=== PATIENT | male | born 1950 | race Caucasian/White ===

== ENCOUNTER 2018-11-09 05:30 | Inpatient (IN) | payer MEDICARE, BC ==
[2018-10-29 12:27] LABS: BASOPHILS % (AUTO) 0.8 % (0-1); EOSINOPHILS # (AUTO) 0.2 X10'3 (0-0.9); EOSINOPHILS % (AUTO) 2.8 % (0-6); LYMPHOCYTES # (AUTO) 0.9 X10'3 (1.1-4.8); LYMPHOCYTES % (AUTO) 14.8 % (21-51); MEAN CORPUSCULAR HEMOGLOBIN 30.8 PG (27.0-31.0); MEAN CORPUSCULAR HGB CONC 34.3 g/dL (33.0-36.5); MEAN CORPUSCULAR VOLUME 89.8 FL (78-98); MEAN PLATELET VOLUME 8.7 FL (7.4-10.4); MONOCYTES # (AUTO) 0.6 X10'3 (0-0.9); MONOCYTES % (AUTO) 9.7 % (2-12); NEUTROPHILS # (AUTO) 4.3 X10'3 (1.8-7.7); NEUTROPHILS % (AUTO) 71.9 % (42-75); PRE OP HEMATOCRIT 50.7 % (42.0-52.0); PRE OP HEMOGLOBIN 17.4 g/dL (14.0-17.9); PRE OP PLATELET COUNT 172 X10'3 (140-440); RED BLOOD COUNT 5.65 X10'6 (4.70-6.10); RED CELL DISTRIBUTION WIDTH 14.3 % (11.5-14.5)
[2018-10-29 12:38] LABS: CLARITY,URINE CLEAR (Clear); COLOR,URINE YELLOW (Yellow); GLUCOSE, URINE NEGATIVE (Neg); KETONES,URINE NEGATIVE (Neg); LEUKOCYTE ESTERASE ,URINE NEGATIVE (Neg); NITRITES, URINE NEGATIVE (Neg); OCCULT BLOOD,URINE NEGATIVE (Neg); PH,URINE 5.5 (4.8-8.0); PROTEIN,URINE NEGATIVE (Neg); UROBILINOGEN,URINE 0.2 E.U/dL (0.2-1.0)
[2018-10-29 12:41] LABS: PRE OP PROTIME 10.2 SECONDS (9.0-12.0)
[2018-10-29 12:41] LABS: UA COLLECTION TYPE VOIDED
[2018-10-29 12:47] LABS: ALBUMIN/GLOBULIN RATIO 1.1 (1.1-1.5); ALKALINE PHOSPHATASE 56 IU/L (46-116); BLOOD UREA NITROGEN 23 MG/DL (7-18); BUN/CREATININE RATIO 24.5 (5.4-32.0); CALCIUM 9.5 MG/DL (8.5-10.1); CHLORIDE 104 MMOL/L (99-107); CREATININE 0.94 MG/DL (0.60-1.10); PRE OP ALT 40 U/L (30-65); PRE OP ANION GAP 8 (8-16); PRE OP AST 20 U/L (10-37); PRE OP BILIRUB, TOTAL 0.5 MG/DL (0.0-1.0); PRE OP GLUCOSE 119 MG/DL (70-104); PRE OP SODIUM 139 MMOL/L (135-145); TOTAL CARBON DIOXIDE 27.2 MMOL/L (24-32); TOTAL PROTEIN 7.7 G/DL (6.4-8.2); eGFR 80 ML/MIN
[2018-11-09] VITALS (19 sets, daily range): BP systolic 106–152; BP diastolic 60–103
[~2018-11-09] VITALS: Ht 180.3 cm; Wt 85.8 kg
[~2018-11-09 05:30] MED LIST: ASCO500C15 PO; CHOL-4 PO; FLO0.4C PO; LIDOcaine 1% (10mg/ml) 2ml vial ONE; LOSA25TA96 PO; OMEG1CAP2 PO; TEST200V10 IM; VITA100D3 PO; VITA1CAP PO; acetaminophen 325mg tablet PO ONE; cefazolin/dext.iso 2gm/100 ML IV ONE; celeCOXIB 100mg capsule PO ONE; famotidine 20mg tablet PO ONE; gabapentin 300mg capsule PO ONE; oxyCODONE SR 10mg (sust. release) tab PO ONE; ringers solution, lacted 1,000 ML IV SCH; tranexamic acid inj. 1,500 MG in normal saline 100ml IV soln 100 ML IV ONE
[2018-11-09] MEDS ORDERED: ROPIVAcaine 0.5% (5mg/ml) 30ml vial ONE ×2 (06:43→09:48)
[2018-11-09] MEDS ORDERED: fentaNYL/PF 50MCG/1 ML 2ML syringe ONE (07:15)
[2018-11-09] MEDS ORDERED: MIDAZolam 1mg/ml 10ml vial ONE (07:15)
[2018-11-09] MEDS ORDERED: vancomycin 1,000mg inj ONE (07:28)
[2018-11-09] MEDS ORDERED: propofol inj 20 ML IV ONE (07:49)
[2018-11-09] MEDS ORDERED: ringers solution, lacted 1,000 ML IV SCH (09:09)
[2018-11-09] MEDS ORDERED: meperidine/PF 25mg/ml syringe IV PRN ×3 (09:10)
[2018-11-09] MEDS ORDERED: proCHLORperazine 10 MG/2 ml inj IV PRN (09:10)
[2018-11-09] MEDS ORDERED: morphine 4 MG/ML inj SYRINge IV PRN ×2 (09:10)
[2018-11-09] MEDS ORDERED: ondansetron/PF 4mg/2ml inj IV PRN ×2 (09:10→10:15)
[2018-11-09] MEDS ORDERED: ceFAZolin 1000mg inj ONE (09:22)
[2018-11-09] MEDS ORDERED: diphenhydrAMINE 25mg capsule PO PRN ×2 (10:15)
[2018-11-09] MEDS ORDERED: bisacodyl 10mg suppository rectal RC PRN (10:15)
[2018-11-09] MEDS ORDERED: HYDROmorphone 1 mg/ml syringe IV PRN (10:15)
[2018-11-09] MEDS ORDERED: magnesium hydroxide 30ml (MOM) UD suspension PO PRN (10:15)
[2018-11-09] MEDS ORDERED: oxyCODONE/APAP 10/325mg tablet PO PRN (10:15)
--- NOTE | 2018-11-09 10:20 | NUR ---
Received from OR via bed, accompanied by Anesthesiologist. Report received. Initial physical assessment done and recorded.
--- NOTE | 2018-11-09 11:20 | NUR ---
Discharge criteria met, report to receiving floor. Transferred to room in stable condition.
[2018-11-09] MEDS: gabapentin 300mg capsule PO SCH ×2 (11:51→20:23)
[2018-11-09] MEDS: potassium cl 20mEq in 1/2 NS 1,000 ML IV SCH ×2 (11:53→18:13)
[2018-11-09] MEDS: oxyCODONE/APAP 10/325mg tablet PO PRN (13:29)
[2018-11-09] MEDS: ceFAZolin 1GM/D5W- ADD-VANTAGE 50 ML IV SCH (15:56)
[2018-11-09] MEDS ORDERED: vancomycin/NS 1 GM ADD-VANTAGE 250 ML IV SCH (20:00)
[2018-11-09] MEDS ORDERED: tamsulosin 0.4mg capsule PO SCH (21:00)
[2018-11-09] MEDS ORDERED: sennosides 8.6mg tablet PO SCH (21:00)
[2018-11-10] MEDS: ceFAZolin 1GM/D5W- ADD-VANTAGE 50 ML IV SCH (00:11)
[2018-11-10] MEDS: acetaminophen 325mg tablet PO PRN ×2 (00:16→10:24)
[2018-11-10] MEDS: oxyCODONE/APAP 10/325mg tablet PO PRN ×3 (02:44→13:30)
[2018-11-10] MEDS: celeCOXIB 100mg capsule PO SCH ×2 (05:45→05:54)
[2018-11-10] MEDS: potassium cl 20mEq in 1/2 NS 1,000 ML IV SCH (05:54)
[2018-11-10 06:00] VITALS: BP 118/81
[2018-11-10 06:10] LABS: BASOPHILS % (AUTO) 0.4 % (0-1); EOSINOPHILS # (AUTO) 0.1 X10'3 (0-0.9); EOSINOPHILS % (AUTO) 0.6 % (0-6); HEMATOCRIT 40.5 % (42.0-52.0); HEMOGLOBIN 13.9 g/dl (14.0-17.9); LYMPHOCYTES # (AUTO) 1.1 X10'3 (1.1-4.8); LYMPHOCYTES % (AUTO) 8.4 % (21-51); MEAN CORPUSCULAR HEMOGLOBIN 30.8 PG (27.0-31.0); MEAN CORPUSCULAR HGB CONC 34.2 g/dL (33.0-36.5); MEAN CORPUSCULAR VOLUME 89.9 FL (78-98); MEAN PLATELET VOLUME 8.2 FL (7.4-10.4); MONOCYTES % (AUTO) 7.7 % (2-12); NEUTROPHILS # (AUTO) 10.5 X10'3 (1.8-7.7); NEUTROPHILS % (AUTO) 82.9 % (42-75); PLATELET COUNT 174 X10'3 (140-440); RED CELL DISTRIBUTION WIDTH 14.4 % (11.5-14.5); WHITE BLOOD COUNT 12.7 X10'3 (4.5-11.0)
--- NOTE | 2018-11-10 06:26 | NUR ---
Report given to Pati ABRAHAM.
--- NOTE | 2018-11-10 06:26 | NUR ---
Student documentation: I have reviewed and agree with all medication administrations, interventions, assessments performed and documented by Evelyn Pack
[2018-11-10 06:42] LABS: ANION GAP 6 (8-16); CHLORIDE 105 MMOL/L (99-107); POTASSIUM 4.2 MMOL/L (3.5-5.1); SODIUM 138 MMOL/L (135-145); TOTAL CARBON DIOXIDE 26.7 MMOL/L (24-32)
[2018-11-10] MEDS: gabapentin 300mg capsule PO SCH ×2 (07:56→13:29)
[2018-11-10] MEDS ORDERED: losartan 25mg tablet PO SCH (08:00)
[2018-11-10 10:00] VITALS: BP 150/86
[2018-11-10] MEDS ORDERED: warfarin 7.5mg tablet PO ONE (10:00)
[2018-11-10] MEDS ORDERED: ASPI-41 PO (11:50)
--- NOTE | 2018-11-10 12:50 | NUR ---
Joint replacement consult: Pt seen by [facility] for written/verbal high protein ed. RD reviewed high protein needs for wound healing, immune strength, high protein foods, and protein supplementation options. RD contact information provided in case of further questions. Pt agrees to double proteins w/ meals; dietary notified. Addendum: 11/10/18 at [address] Amended: Links added.
--- NOTE | 2018-11-10 13:30 | NUR ---
Wheeled patient out to care. IV 22 gauge taken out, canula intact.
[2018-11-10] MEDS ORDERED: celeCOXIB 100mg capsule PO SCH (20:00)
[2018-11-11] MEDS ORDERED: acetaminophen 325mg tablet PO PRN (10:15)
== END 2018-11-10 13:46 | disposition home health service (06) | DRG 470 ==
LOC: PAS IN 05:30 → EDSTATUS 07:30 → ORTHO 4S 11:30
PROVIDERS: ADMIT Specialist; ATTEND Nurse Practitioner
PROC: 0MNN0ZZ Release Right Knee Bursa and Ligament, Open Approach (ICD-10-PCS; 2018-11-09)
PROC: 3E0T3BZ Introduction of Anesthetic Agent into Peripheral Nerves and Plexi, Percutaneous Approach (ICD-10-PCS; 2018-11-09)
PROC: 0SRC0J9 Replacement of Right Knee Joint with Synthetic Substitute, Cemented, Open Approach (ICD-10-PCS; principal; 2018-11-09 07:18)
DX: M17.11 Unilateral primary osteoarthritis, right knee (principal); D62 Acute posthemorrhagic anemia; M21.061 Valgus deformity, not elsewhere classified, right knee; I10 Essential (primary) hypertension; N40.0 Benign prostatic hyperplasia without lower urinary tract symptoms; M81.0 Age-related osteoporosis without current pathological fracture
CPT/HCPCS: 36415; 73560; 80051; 80053; 81003; 82948; 85025; 85610; 85730; 87070; 97110; 97116; 97161; 97530; A6449; A6455; A7000; C1713; C1758; C1776; G0378; J0690; J1170; J2250; J2405; J2704; J2795; J3010; J3370; J3490; J7030; J7120

== ENCOUNTER 2018-11-11 23:35 | Emergency (ER) | payer MEDICARE, BC ==
[~2018-11-11] VITALS: Ht 180.3 cm; Wt 86.3 kg
[~2018-11-11 23:35] MED LIST changes: +ASPI-41 PO; -LIDOcaine 1% (10mg/ml) 2ml vial ONE; -acetaminophen 325mg tablet PO ONE; -cefazolin/dext.iso 2gm/100 ML IV ONE; -celeCOXIB 100mg capsule PO ONE; -famotidine 20mg tablet PO ONE; -gabapentin 300mg capsule PO ONE; -oxyCODONE SR 10mg (sust. release) tab PO ONE; -ringers solution, lacted 1,000 ML IV SCH; -tranexamic acid inj. 1,500 MG in normal saline 100ml IV soln 100 ML IV ONE
[2018-11-12 00:23] LABS: BASOPHILS % (AUTO) 0.4 % (0-1); EOSINOPHILS # (AUTO) 0.1 X10'3 (0-0.9); HEMATOCRIT 39.1 % (42.0-52.0); HEMOGLOBIN 13.3 g/dl (14.0-17.9); LYMPHOCYTES # (AUTO) 1.1 X10'3 (1.1-4.8); LYMPHOCYTES % (AUTO) 11.1 % (21-51); MEAN CORPUSCULAR HEMOGLOBIN 30.8 PG (27.0-31.0); MEAN CORPUSCULAR HGB CONC 34.1 g/dL (33.0-36.5); MEAN CORPUSCULAR VOLUME 90.2 FL (78-98); MEAN PLATELET VOLUME 8.5 FL (7.4-10.4); MONOCYTES # (AUTO) 1.2 X10'3 (0-0.9); NEUTROPHILS # (AUTO) 7.5 X10'3 (1.8-7.7); NEUTROPHILS % (AUTO) 75.5 % (42-75); PLATELET COUNT 160 X10'3 (140-440); RED BLOOD COUNT 4.34 X10'6 (4.70-6.10); RED CELL DISTRIBUTION WIDTH 14.5 % (11.5-14.5); WHITE BLOOD COUNT 9.9 X10'3 (4.5-11.0)
[2018-11-12 00:31] LABS: ALANINE AMINOTRANSFERASE 35 U/L (12-78); ALBUMIN 3.3 G/DL (3.4-5.0); ALBUMIN/GLOBULIN RATIO 0.8 (1.1-1.5); ALKALINE PHOSPHATASE 44 IU/L (46-116); ANION GAP 5 (8-16); ASPARTATE AMINO TRANSFERASE 28 U/L (10-37); BILIRUBIN,TOTAL 0.6 MG/DL (0.1-1.0); BLOOD UREA NITROGEN 20 MG/DL (7-18); BUN/CREATININE RATIO 23.5 (5.4-32.0); CALCIUM 9.5 MG/DL (8.5-10.1); CHLORIDE 102 MMOL/L (99-107); CREATININE 0.85 MG/DL (0.60-1.10); GLUCOSE 113 MG/DL (70-104); POTASSIUM 3.8 MMOL/L (3.5-5.1); SODIUM 136 MMOL/L (135-145); TOTAL CARBON DIOXIDE 28.9 MMOL/L (24-32); TOTAL PROTEIN 7.2 G/DL (6.4-8.2); eGFR 89 ML/MIN
[2018-11-12] MEDS ORDERED: CEPH500C5 PO (01:19)
[2018-11-12] MEDS ORDERED: cephalexin 250mg capsule PO ONE (01:20)
[2018-11-12 01:46] LABS: CLARITY,URINE CLEAR (Clear); COLOR,URINE YELLOW (Yellow); GLUCOSE, URINE NEGATIVE (Neg); KETONES,URINE NEGATIVE (Neg); LEUKOCYTE ESTERASE ,URINE NEGATIVE (Neg); NITRITES, URINE NEGATIVE (Neg); OCCULT BLOOD,URINE NEGATIVE (Neg); PROTEIN,URINE NEGATIVE (Neg); UROBILINOGEN,URINE 0.2 E.U/dL (0.2-1.0)
[2018-11-12 01:50] LABS: UA COLLECTION TYPE CLN CATCH MIDSTREAM
[2018-11-12 01:57] VITALS: BP 135/8
== END 2018-11-12 01:59 | disposition home or self-care (01) ==
LOC: ER 23:36
DX: L03.115 Cellulitis of right lower limb (principal); Z98.890 Other specified postprocedural states; Z79.82 Long term (current) use of aspirin; Z79.899 Other long term (current) drug therapy; Z96.651 Presence of right artificial knee joint
CPT/HCPCS: 36415; 80053; 81003; 83605; 84145; 85025; 87040; 99283

== ENCOUNTER 2024-10-30 15:13 | Emergency (ER) | payer OTHER, MEDICARE, BC ==
[~2024-10-30] VITALS: Ht 182.9 cm; Wt 91.1 kg
[~2024-10-30 15:13] MED LIST changes: +AMLO5TAB16 PO; -ASCO500C15 PO; +ASCO500C18 PO; +ASPI-1071 PO; -ASPI-41 PO; +ATOR20TA66 PO; +CLOP75TA34 PO; -FLO0.4C PO; -LOSA25TA96 PO; +TAMS-55 PO; -TEST200V10 IM; +TEST200V33 IM
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
[2024-10-30 17:14] VITALS: TEMP 98.5
[2024-10-30 18:10] VITALS: BP 174/124; PULSE 94; RESP 18; O2SAT 94
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
[2024-10-30 18:38] LABS: BILIRUBIN,URINE NEGATIVE (Neg); CLARITY,URINE CLEAR (Clear); COLOR,URINE YELLOW (Yellow); GLUCOSE, URINE NEGATIVE (Neg); KETONES,URINE NEGATIVE (Neg); LEUKOCYTE ESTERASE ,URINE NEGATIVE (Neg); NITRITES, URINE NEGATIVE (Neg); OCCULT BLOOD,URINE NEGATIVE (Neg); PROTEIN,URINE TRACE mg/dl (Neg); UROBILINOGEN,URINE 0.2 E.U/dL (0.2-1.0)
[2024-10-30 18:43] LABS: UA COLLECTION TYPE NON-SPECIFIED
[2024-10-30 18:44] LABS: WBC,URINE 0-4 /HPF (0-4)
[2024-10-30 18:45] LABS: BACTERIA,URINE 4+ /HPF (Neg); RBC,URINE NONE SEEN /HPF (0-2); SQUAMOUS EPITHELIAL CELL,UR FEW /LPF (FEW)
== END 2024-10-30 20:29 | disposition home or self-care (01) ==
LOC: ER 15:14
DX: R07.81 Pleurodynia (principal); R03.0 Elevated blood-pressure reading, without diagnosis of hypertension; Z79.82 Long term (current) use of aspirin; Z79.899 Other long term (current) drug therapy; V89.2XXA Person injured in unspecified motor-vehicle accident, traffic, initial encounter; Y93.89 Activity, other specified; Y92.89 Other specified places as the place of occurrence of the external cause; Y99.8 Other external cause status
CPT/HCPCS: 71100; 81001; 99284

== ENCOUNTER 2025-02-09 19:41 | Inpatient (IN) | payer MEDICARE, BC ==
[~2025-02-09] VITALS: Ht 180.3 cm; Wt 93.5 kg
--- NOTE | 2025-02-09 20:41 | ELECTROCARDIOGRAPH REPORT ---
[facility] Test Date: 2025-02-09 Test Time: 20:26:55 Pat Name: MAITE ANDERSEN Department: EMERGENCY ROOM Room: Gender: M Supervisor [employer]: : 1950 Requested By: LEN ZARATE Order Number: [id number] Reading MD: Measurements Intervals [place] Rate: 126 P: 58 WA: 156 QRS: 56 QRSD: 95 T: -45 QT: 293 QTc: 425 Interpretive Statements Sinus tachycardia Probable inferior infarct, age indeterminate Borderline ST elevation, anterior leads Lateral leads are also involved Please click the below link to view image of tracing.
[2025-02-09 20:43] LABS: MEAN PLATELET VOLUME 8.7 FL (7.4-10.4); RED CELL DISTRIBUTION WIDTH 15.0 % (11.5-14.5)
[2025-02-09 20:54] LABS: CREATININE 1.20 MG/DL (0.60-1.10); TOTAL CARBON DIOXIDE 25.0 MMOL/L (24-32); eCRCL 57 ML/MIN; eGFR 59 ML/MIN
[2025-02-09 21:02] LABS: LEUKOCYTE ESTERASE ,URINE LARGE (Neg); NITRITES, URINE POSITIVE (Neg); OCCULT BLOOD,URINE SMALL (Neg)
--- NOTE | 2025-02-09 21:03 | RADIOLOGY REPORT ---
EXAM: DI CHEST,SINGLE VIEW CLINICAL HISTORY: SEPSIS SYMPTOMS TECHNIQUE: Single AP view of the chest WID: COMPARISON: DI CHEST,SINGLE VIEW on DOS: 11/20/23 FINDINGS: Lines and tubes: None Chest: The heart size and pulmonary vasculature is within normal limits. No pleural effusion, pneumothorax, or consolidation. The osseous structures are grossly intact. Multilevel thoracic spondylosis. IMPRESSION: 1. No acute cardiopulmonary abnormality.
[2025-02-09 21:08] LABS: UA COLLECTION TYPE VOIDED
[2025-02-09 21:09] LABS: SQUAMOUS EPITHELIAL CELL,UR FEW /LPF (FEW)
[2025-02-09 21:10] LABS: MUCUS STRANDS FEW /LPF (Neg); WBC CLUMPS,URINE MODERATE /HPF (NEGATIVE)
[2025-02-09 21:11] LABS: RENAL CELLS, URINE FEW /HPF
[2025-02-09 21:12] LABS: BANDS% (MANUAL) 10 % (0-10); NEUTROPHILS % (MANUAL) 86 % (42-75)
[2025-02-09 21:13] LABS: EOSINOPHILS % (MANUAL) 1 % (0-6); LYMPHOCYTES % (MANUAL) 2 % (21-51); MONOCYTES % (MANUAL) 1 % (2-12); PLATELET ESTIMATE NORMAL
--- NOTE | 2025-02-09 21:58 | Physician Documentation ---
History of Present Illness ~ Chief Complaint: Urinary Symptoms Stated Complaint: POSS SEPSIS Time Seen by MD: 21:57 HPI Patient presents to the emergency room for evaluation of fevers and rigors. Patient was recently diagnosed with urinary tract infection which started a proximally a few days ago. History of sepsis from urinary tract infection. Was prescribed some Bactrim and began taking it today however symptoms worsen therefore came in to be evaluated. Patient has history of urinary tract infections ever since he had TURP procedure Medication Reconciliation Allergies: Coded Allergies: No Known Allergies (Unverified , 02/09/25) Scheduled Amlodipine Besylate (Amlodipine Besylate), 2 TAB PO DAILY Ascorbic Acid (Vitamin C), 2 CAP PO DAILY, (Reported) Aspirin (Ecotrin*), 1 TAB PO DAILY Atorvastatin Calcium (Atorvastatin Calcium), 40 MG PO DAILY Cholecalciferol (Vitamin D3) (Vitamin D3), 1 CAP PO DAILY, (Reported) Clopidogrel Bisulfate (Clopidogrel), 75 MG PO DAILY Losartan Potassium (Losartan Potassium), 1 TAB PO DAILY, (Reported) [place]-3 Fatty Acids/Fish Oil (Fish Oil 1,000 mg Capsule), 2 CAP PO DAILY, (Reported) Tamsulosin Hcl* (Flomax*), 1 CAP PO HS, (Reported) Testosterone Cypionate (TESTOSTERONE CYPIONATE 200mg/ml 10ml vial), 0.25 ML IM 2XWEEK, (Reported) Vitamin B Complex (Vitamin B Complex), 1 TAB PO DAILY, (Reported) Vitamin E Acetate (Vitamin E), 180 MG PO 3 TIMES WEEKLY, (Reported) Past Medical History Past Medical History: *RENAL/*, UTI, *INFECTIOUS DZ* Past Surgical History: abdominal surgery, orthopedic surgeries Alcohol Use: None Drug Use: none Lives with: Spouse Lives In: Home Review of Systems ROS All review of systems negative except as per HPI Physical Exam Vital Signs: Temperature: 101.7, Source: Oral, Heart Rate: 129, Respiratory Rate: 19, BP: 161/91, Pulse Oximetry: 94, Weight: 93.500 Oxygen Flow Rate: 0 Physical Exam General: Patient is awake, alert, oriented x4 in no acute distress Head: Normocephalic and atraumatic. Eyes: Conjunctival normal. EOMI. PERRL. ENT: Mucous membranes moist. Neck: Supple, trachea is midline. Chest: Clear to auscultation bilaterally without rales, rhonchi, or wheezes. There is no accessory muscle use or retractions. Cardiac: Tachycardic and regular without murmurs, gallops, or rubs. Abd: Soft, nondistended, nontender, with normoactive bowel sounds. No guarding, rebound, or rigidity. Sepsis Screening Reassessment Time: 00:12 Cardiology Exam: normal peripheral pulses Peripheral Pulses: 2+ radial (R), 2+ radial (L), 2+ dorsalis pedis (R), 2+ dorsalis pedis (L) Extremities: normal inspection Skin Color: Normal Progress Results/Orders Results/Orders Orders - BRADY LUCAS MD Culture Blood (02/09/25 20:23) Chest,Single View (02/09/25 20:23) Monitor (02/09/25 20:23) Saline Lock (02/09/25 20:23) Cult Urine + [address] Ct (02/09/25 21:09) Normal Saline 1000ml (0.9% Sodium Chlori (02/09/25 22:05) Page Hospitalist (02/09/25 22:05) Fill Out Med Reconciliation (02/09/25 22:05) Completed Orders - BRADY LUCAS MD Cbc/Diff (02/09/25 20:23) Chest,Single View (02/09/25 20:23) Procalcitonin (02/09/25 20:23) BMP (02/09/25 20:23) Lacticsepsis (02/09/25 20:23) Electrocardiogram (02/09/25 ) Acetaminophen 325mg Tablet (Tylenol Tabl (02/09/25 20:30) Ua W/Microscopic, Cult If Ind (02/09/25 20:50) Man Diff (02/09/25 20:31) Ceftriaxone/W2n-Aufscvbk 1gm (Rocephin 1 (02/09/25 22:05) C-Reactive Protein (02/09/25 20:31) Liver Panel (02/09/25 20:31) Medications Received in ER Medications (Trade) Dose Ordered Sig/Fabián Route PRN Reason Start Time Stop Time Status Last Admin Dose Admin (Tylenol tablet) 650 mg ONCE ONCE PO 02/09/25 20:30 02/09/25 20:31 DC 02/09/25 20:58 650 MG Ceftriaxone Sodium 50 ml @ 100 mls/hr ONCE ONCE IV 02/09/25 22:05 02/09/25 22:35 DC 02/09/25 22:42 100 MLS/HR (0.9% sodium chloride (NS) 1000ml IV soln) 2,000 ml ONCE ONCE IVB 02/09/25 22:05 02/09/25 22:07 DC 02/09/25 22:42 2,000 ML Vital Signs 02/09/25 02/09/25 02/09/25 20:13 21:57 23:50 Temp 101.7 98.7 97.0 Pulse 129 108 99 Resp 19 16 16 B/P (MAP) 161/91 148/94 (112) 156/89 (111) Pulse Ox 94 94 94 O2 Flow Rate 0 0 0 Laboratory Tests Test 02/09/25 20:31 02/09/25 20:50 White Blood Count 13.6 H Red Blood Count 5.38 Hemoglobin 16.2 Hematocrit 47.9 Mean Corpuscular Volume 89.1 Mean Corpuscular Hemoglobin 30.0 Mean Corpuscular Hemoglobin Concent 33.7 Red Cell Distribution Width 15.0 H Platelet Count 154 Mean Platelet Volume 8.7 Neutrophils (%) (Auto) 95.3 H Lymphocytes (%) (Auto) 2.0 L Monocytes (%) (Auto) 2.5 Eosinophils (%) (Auto) 0.1 Basophils (%) (Auto) 0.1 Neutrophils # (Auto) 12.9 H Lymphocytes # (Auto) 0.3 L Monocytes # (Auto) 0.3 Eosinophils # (Auto) 0.0 Basophils # (Auto) 0.0 CBC Comment Differential Total Cells Counted 100 Neutrophils % (Manual) 86 H Band Neutrophils % 10 Lymphocytes % (Manual) 2 L Monocytes % (Manual) 1 L Eosinophils % (Manual) 1 Toxic Vacuolation 1+ Platelet Estimate Normal Red Blood Cell Morphology Normal Basophilic Stippling Sodium Level 133 L Potassium Level 4.4 Chloride Level 97 L Carbon Dioxide Level 25.0 Anion Gap 11 Blood Urea Nitrogen 29 H Creatinine 1.20 H Estimated GFR/1.73 m2 59 BUN/Creatinine Ratio 24.2 H Glucose Level 103 Lactic Acid Level 1.0 Calcium Level 9.7 Total Bilirubin 1.5 H Direct Bilirubin 0.3 Aspartate Amino Transf (AST/SGOT) 29 Alanine Aminotransferase (ALT/SGPT) 43 Alkaline Phosphatase 52 C-Reactive Protein 9.21 H Total Protein 7.6 Albumin 3.9 Globulin 3.7 Albumin/Globulin Ratio 1.1 Procalcitonin 2.53 H Chemistry Comments Urine Specimen Description Voided Urine Color Yellow Urine Clarity Slightly cloudy Urine pH 6.0 Urine Specific [place] 1.015 Urine Protein Negative Urine Glucose (UA) Negative Urine Ketones Negative Urine Occult Blood Small Urine Nitrite Positive H Urine Bilirubin Negative Urine Urobilinogen 0.2 Urine Leukocyte Esterase Large H Urine RBC 3-10 Urine WBC 20-30 H Urine WBC Clumps Moderate Urine Squamous Epithelial Cells Few Urine Renal Cells Few Urine Bacteria 3+ Urine Mucus Few Urine Culture Indicated Indicated Volume Urine Centrifuged 10 ml Urine Comment Microbiology Date/Time Source Procedure Growth Status 02/09/25 21:09 Urine Voided Urine Culture - Preliminary Culture received. Resulted 02/09/25 20:35 Blood Hand Left Blood Culture - Preliminary NEGATIVE (LESS THAN 24 HOURS) Resulted EKG/XRAY/CT/US/VASC/MRI EKG : Additional Comment EKG interpreted by myself shows time of 2025, rate 126, sinus tachycardia, normal axis, nonspecific ST-T changes and T-wave inversions Chest X-Ray : Additional Comments Exam: CHEST,SINGLE VIEW EXAM: DI CHEST,SINGLE VIEW CLINICAL HISTORY: SEPSIS SYMPTOMS TECHNIQUE: Single AP view of the chest WID: COMPARISON: DI CHEST,SINGLE VIEW on DOS: 11/20/23 FINDINGS: Lines and tubes: None Chest: The heart size and pulmonary vasculature is within normal limits. No pleural effusion, pneumothorax, or consolidation. The osseous structures are grossly intact. Multilevel thoracic spondylosis. IMPRESSION: 1. No acute cardiopulmonary abnormality. Medical Decision Making Findings Patient presented to the emergency room with fever and dysuria as per HPI. Differentials include but are not limited to sepsis, urinary tract infection, metabolic encephalopathy, electrolyte disturbances therefore emergent labs and imaging indicated. Labs show patient is indeed suffering from urosepsis. IV antibiotics initiated and 30 milliliters/kilogram of IV fluids started. Blood pressure is reassuring and he had not feel he requires ICU. Departure Admitted to Inpatient Unit: yes, to hospitalist Impression: Primary Impression: Acute urinary tract infection Additional Impression: Sepsis Condition: Guarded Referrals: NO PRIMARY CARE PROVIDER (PCP) Signature Scribe Signature: No scribe Attestation: The note accurately reflects work and decisions made by me.Brady Lucas MD 02/10/25 00:12 BRADY LUCAS MD Feb 09, 2025 21:58
[2025-02-09] MEDS ORDERED: magnesium hydroxide 30ml (MOM) UD suspension PO PRN (22:25)
[2025-02-09] MEDS ORDERED: HYDROcodone/acetaminophen 10/325mg tab PO PRN (22:25)
[2025-02-09] MEDS ORDERED: potassium Cl 20 mEq SR tablet PO PRN ×2 (22:25)
[2025-02-09] MEDS ORDERED: magnesium sulf-water 2g/50mL 50 ML IV PRN (22:25)
[2025-02-09] MEDS ORDERED: ondansetron/PF 4mg/2ml inj IV PRN (22:25)
[2025-02-09] MEDS ORDERED: mag hydrox/Alum hydrox/simeth 30ml oral suspension PO PRN (22:25)
[2025-02-09] MEDS ORDERED: magnesium Cl slow-release 64mg tablet PO PRN (22:25)
[2025-02-09] MEDS ORDERED: magnesium sulf-water 4G/100mL 100 ML IV PRN (22:25)
[2025-02-09] MEDS ORDERED: potassium Cl 40MEQ/1/2NS 520ml 520 ML IV PRN (22:25)
[2025-02-09] MEDS: CefTRIAXone/D5W-Rocephin 1gm 50 ML IV ONE (22:42)
[2025-02-09] MEDS: normal saline 1000ML IV soln IVB ONE (22:42)
[2025-02-09] MEDS ORDERED: LOSA50TA64 PO (23:22)
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
[2025-02-10] VITALS (12 sets, daily range): BP systolic 130–187; BP diastolic 78–117; PULSE 93–135; RESP 16–20; TEMP 97.5–100.7; O2SAT 92–98
[2025-02-10] MEDS: normal saline 1000ml 1,000 ML IV SCH (01:06)
[2025-02-10 04:55] LABS: MEAN PLATELET VOLUME 8.4 FL (7.4-10.4); RED CELL DISTRIBUTION WIDTH 15.1 % (11.5-14.5)
[2025-02-10 05:26] LABS: CREATININE 1.15 MG/DL (0.60-1.10); TOTAL CARBON DIOXIDE 23.9 MMOL/L (24-32); eCRCL 59 ML/MIN; eGFR 62 ML/MIN
[2025-02-10] MEDS: LidoCAINE 2% Topical Jelly 11mL syringe (UROJET) TOP ONE (05:50)
[2025-02-10] MEDS: acetaminophen 1,000mg/100ml IV 100 ML IV ONE (07:40)
[2025-02-10] MEDS: docusate sod 100mg capsule PO SCH (07:50)
[2025-02-10] MEDS: heparin, porcine 5000 units/ml vial SQ SCH (07:58)
[2025-02-10] MEDS: K and/or MAG REPLACEMENT MC SCH (08:00)
[2025-02-10] MEDS: HYDROcodone/acetaminophen 5mg/325mg tablet PO PRN (10:49)
--- NOTE | 2025-02-10 13:09 | RADIOLOGY REPORT ---
RENAL ULTRASOUND History: looking for pyelonephritis Comparison: None Technique: Multiple real-time sonographic images of the kidney and bladder were obtained in conjunction with Doppler imaging. Findings: The right kidney measures 12.9 cm and demonstrates no evidence of hydronephrosis, perinephric fluid collection, or shadowing stone. The left kidney measures 12.9 cm and demonstrates no evidence of hydronephrosis, perinephric fluid collection, or shadowing stone. Possible renal hypoechoic/anechoic lesion measuring 2.9 cm Urinary bladder: Decompressed by Sinclair catheter. Impression: No hydronephrosis. Possible left renal lower pole hypoechoic/anechoic lesion measuring 2.9 cm. Recommend MRI abdomen with and without contrast to exclude any renal mass/complex cystic lesion
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
[2025-02-10] MEDS: phenazopyridine 100mg tablet PO SCH (15:47)
[2025-02-10] MEDS ORDERED: oxyCODONE/APAP 5-325mg tablet PO PRN (17:00)
[2025-02-10] MEDS ORDERED: iohexol 300mg/ml 100ml inj. ONE (17:30)
[2025-02-10] MEDS: HYDROmorphone inj. 0.5 MG/0.5 ML DISP.SYRIN IV PRN (17:58)
--- NOTE | 2025-02-10 18:18 | RADIOLOGY REPORT ---
COMPUTERIZED TOMOGRAPHY ABDOMEN AND PELVIS WITH CONTRAST REASON FOR EXAM: Left renal mass. COMPARISON: None TECHNIQUE: The exam was performed on a Multidetector scanner. Spiral scans were acquired from the diaphragm to the symphysis pubis after administration of IV contrast. 2-D coronal and sagittal reformatted images were provided. Radiation optimization: All CT scans at this facility use at least one of these dose optimization techniques: Automated exposure control mA and/or kV adjustment per patient size (includes targeted exams where dose is matched to clinical indication) or iterative reconstruction. CONTRAST ADMINISTRATION: 100 mL omnipaque 300 intravenously RADIATION DOSE: CTDI: 26 mGy DLP: 1351 mGy-cm FINDINGS: The visualized lung bases are clear. There is no pleural effusion. There is no pericardial effusion. The spleen is borderline enlarged at 13.6 cm in length. The liver is mildly enlarged at 19.6 cm in length. There is a 3.2 cm cyst in the right lobe of the liver. No hepatic mass is identified. The portal vein is patent. No calcified gallstone is identified. The pancreas is within normal limits. The adrenal glands are normal. There is mild nonspecific bilateral perinephric stranding. There is an indeterminate 3.1 x 3.9 cm exophytic hypodense lesion at the inferior pole of the left kidney without evidence of septations or calcifications. There is a subcentimeter hypodensity of the inferior pole of the right kidney that is too small to characterize but likely represents a cyst and requires no dedicated follow-up. There is no hydronephrosis of either kidney. There is no abdominal aortic aneurysm. There is no free fluid identified in the abdomen or pelvis. There is no pathologic lymphadenopathy by size criteria. The urinary bladder is collapsed about a Sinclair catheter balloon. The prostate is enlarged. There is extensive descending and sigmoid diverticulosis without evidence of diverticulitis. The colonic stool burden is small. The appendix is normal. There is no pathologic distention of the small bowel to suggest obstruction. No acute osseous abnormality is identified. There is chronic appear ing mild height loss of the body of L4. IMPRESSION: Indeterminate density 3.9 cm exophytic hypodense lesion of the inferior pole of the left kidney without evidence of septation or calcification. Agree with per recommendation of MRI without and with contrast. Alternatively, multiphase CT without and with contrast could be performed. Hepatomegaly. Borderline splenomegaly.
[2025-02-10] MEDS: CefTRIAXone/D5W-Rocephin 1gm 50 ML IV SCH (21:32)
--- NOTE | 2025-02-10 23:42 | PROGRESS NOTE ---
Daily Progress Note Providers to CC ~ Antibiotic Timeout Antibiotic Ordered?: Yes Subjective The patient is experiencing significant pain in regards to his Sinclair catheter to the point where he is not able to sleep in his requesting changes in his pain medication however the patient reiterated several times that he does not want to get any cognitive effects from medications if possible just wants to sleep. There is a indeterminate 3.9 cm exophytic hypodensity lesion in the inferior pole of the left kidney seen both on a renal ultrasound and on abdominal pelvic CT scan with IV contrast Objective Vital Signs Date Time Temp Pulse Resp B/P (MAP) Pulse Ox O2 Delivery O2 Flow Rate FiO2 02/10/25 22:28 98.1 93 16 130/78 (95) 98 Room Air 02/09/25 23:50 0 Result Diagram: 02/10/2543802/10/25438 Gen. No acute distress alert and oriented 4 Lungs clear to ascultation bilaterally, no wheezes rales or rhonchi appreciated Heart normal sinus rhythm no murmurs rubs or clicks noted Abdomen soft nontender bowel sounds are normoactive Lower extremities no clubbing cyanosis, nor edema appreciated bilaterally Problem\Assessment\Plan Problems/Diagnosis: (1) Sepsis # UTI I secondary to cystitis # Sepsis IV fluid administration Awaiting urine culture Results IV Rocephin # essential hypertension Continue losartan and amlodipine # Kidney disease RANDAL versus CKD Monitor daily labs # Indeterminate density 3.9 cm exophytic hypodense lesion of the inferior pole of the left kidney without evidence of septation or calcification. MRI of the abdomen with and without contrast is recommended by radiologist Sepsis Screening Reassessment Time: 0012 Skin Color: Normal Date of Service: Feb 10, 2025 Billing Provider: MARIO BAEZ DO Common Visit Codes: [id number] INP/OBS CARE(HIGH) MARIO BAEZ DO Feb 10, 2025 23:42
[2025-02-11 06:00] VITALS: BP 167/89; PULSE 104; RESP 16; TEMP 97.8; O2SAT 93
[2025-02-11 06:35] LABS: MEAN PLATELET VOLUME 8.8 FL (7.4-10.4); RED CELL DISTRIBUTION WIDTH 15.2 % (11.5-14.5)
[2025-02-11 06:55] LABS: CREATININE 1.08 MG/DL (0.60-1.10); TOTAL CARBON DIOXIDE 24.4 MMOL/L (24-32); eCRCL 63 ML/MIN; eGFR 67 ML/MIN
[2025-02-11 08:00] VITALS: RESP 14; RESP 16; O2SAT 93
[2025-02-11 10:00] VITALS: BP 152/77; PULSE 100; RESP 14; TEMP 97.9; O2SAT 95
[2025-02-11 18:00] VITALS: BP 183/111; PULSE 104; RESP 16; TEMP 99.1; O2SAT 94
[2025-02-11] MEDS: hydrALAZINE 20mg/ml inj. IV PRN (18:47)
[2025-02-11 20:00] VITALS: RESP 16; O2SAT 94
[2025-02-11] MEDS ORDERED: [UNRECOGNIZED DRUG - OTHER] PO (21:30)
[2025-02-11] MEDS ORDERED: d mannose PO (21:30)
--- NOTE | 2025-02-11 21:49 | PROGRESS NOTE ---
Daily Progress Note Providers to CC ~ Antibiotic Timeout Antibiotic Ordered?: Yes Subjective The patient has urinary retention due to severe pain we did remove the Sinclair catheter and several hours later he now has 700 cc of fluid in his bladder the patient informs me he has had up to 1.6 L of fluid in his bladder I did speak with the patient about doing a straight cath and that we would use the lidocaine Uro jet prior to the catheterization has this time the patient is not want to do a straight cath however I did inform him we do a bladder scan every 4 hours. Objective Vital Signs Date Time Temp Pulse Resp B/P (MAP) Pulse Ox O2 Delivery O2 Flow Rate FiO2 02/11/25 18:47 104 02/11/25 18:00 99.1 16 183/111 (135) 94 Room Air 02/09/25 23:50 0 Result Diagram: 02/11/25 0554 02/11/25 0554 Gen. No acute distress alert and oriented 4 Lungs clear to ascultation bilaterally, no wheezes rales or rhonchi appreciated Heart normal sinus rhythm no murmurs rubs or clicks noted Abdomen soft nontender bowel sounds are normoactive Lower extremities no clubbing cyanosis, nor edema appreciated bilaterally Problem\Assessment\Plan Problems/Diagnosis: (1) Sepsis # UTI I secondary to cystitis # Sepsis IV fluid administration Awaiting urine culture Results IV Rocephin # essential hypertension Continue losartan and amlodipine # Kidney disease RANDAL versus CKD Monitor daily labs # Indeterminate density 3.9 cm exophytic hypodense lesion of the inferior pole of the left kidney without evidence of septation or calcification. MRI of the abdomen with and without contrast is recommended by radiologist The patient unable to obtain an MRI due to his body habitus Sepsis Screening Reassessment Time: 11 Skin Color: Normal Date of Service: Feb 11, 2025 Billing Provider: MARIO BAEZ DO Common Visit Codes: [id number] INP/OBS CARE(HIGH) MARIO BAEZ DO Feb 11, 2025 21:49
[2025-02-11 22:00] VITALS: BP 159/103; PULSE 109; RESP 18; TEMP 98.1; O2SAT 95
[2025-02-12] MEDS: LidoCAINE 2% Topical Jelly 11mL syringe (UROJET) TOP ONE (02:30)
[2025-02-12 06:15] LABS: MEAN PLATELET VOLUME 9.1 FL (7.4-10.4); RED CELL DISTRIBUTION WIDTH 15.0 % (11.5-14.5)
[2025-02-12 06:36] LABS: CREATININE 1.04 MG/DL (0.60-1.10); TOTAL CARBON DIOXIDE 27.5 MMOL/L (24-32); eCRCL 65 ML/MIN; eGFR 70 ML/MIN
[2025-02-12 08:00] VITALS: RESP 18; O2SAT 96
[2025-02-12 08:13] VITALS: BP_SYST 160; PULSE 90
[2025-02-12] MEDS: aspirin 81mg, enteric-coated 1 TAB TABLET.DR PO SCH (08:13)
[2025-02-12] MEDS: OMEGA-3/DHA/EPA/FISH OIL 1 EACH CAPSULE.DR PO SCH (08:15)
[2025-02-12] MEDS ORDERED: LEVO750T68 PO (11:15)
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
== END 2025-02-12 12:22 | disposition home or self-care (01) | DRG 872 ==
LOC: ER 19:42 → ED HOLD 22:26 → ORTHO 4S 02-10 00:30
PROVIDERS: ADMIT Internal Medicine; ATTEND Family Medicine
PROC: BW211ZZ Computerized Tomography (CT Scan) of Abdomen and Pelvis using Low Osmolar Contrast (ICD-10-PCS; principal; 2025-02-10)
DX: A41.9 Sepsis, unspecified organism (principal); N30.00 Acute cystitis without hematuria; I10 Essential (primary) hypertension; Z20.822 Contact with and (suspected) exposure to COVID-19; K76.9 Liver disease, unspecified; N40.1 Benign prostatic hyperplasia with lower urinary tract symptoms; R33.8 Other retention of urine; M48.02 Spinal stenosis, cervical region; Z79.82 Long term (current) use of aspirin; Z79.899 Other long term (current) drug therapy; N28.9 Disorder of kidney and ureter, unspecified
CPT/HCPCS: 36415; 71045; 72141; 74177; 76770; 80048; 80053; 80076; 81001; 83605; 83735; 84145; 85007; 85025; 85651; 86140; 87040; 87077; 87081; 87088; 87186; 87811; 93005; 96365; 99285; A4314; A5200; A6258; A6402; G0378; J0131; J0360; J0696; J1171; J1644; J7030; Q9967